=== PATIENT | female | born 1955 | race African-American/Black ===

== ENCOUNTER 2017-02-03 15:38 | Inpatient (IN) ==
[2017-02-03] MEDS ORDERED: SODIUM CHLORIDE 0.9% 1,000 ML IV STA (16:14)
--- NOTE | 2017-02-03 16:17 | Emergency Department Note ---
Arrival - Arrival Chief Complaint: Non-Specific Stated Complaint: weakness, hearing loss, headache, cough, stomach ED Nursing Triage Note: pt to triage with c/o having multi c/o's, pt c/o having peg tube site pain. weakness. headaches. onset 3 days echo vasc tech. Mode of Arrival: Wheelchair Limitations: Language Barrier Source: Family Time Seen by Provider: 02/03/17 16:01 - History of Present Illness HPI Narrative: The patient has a previous history of brain aneurysm 2 and cannot speak so history is limited. The family complains of generalized weakness, right sided headache and cough for the past 2-3 days. They say that she is usually able to get up and walk around with her walker, however, she has been unable to today. The cough is nonproductive and occurs mostly at night. They think she may have run some low-grade fever a few days ago, but none at present. They also say that the patient has been complaining of some abdominal pain around her PEG tube site although she does not appear to be having any pain there at this time. Allergies/Adverse Reactions: Allergies Allergy/AdvReac Type Severity Reaction Status Date / Time codeine Allergy HIVES Verified 02/03/17 15:47 Home Medications: Home Medications Medication Instructions Recorded Confirmed Type No Known Home Medications [No 02/03/17 02/03/17 History Known Home Medications] Review of System - Review of System ROS unobtainable: other (Aphasia) - Review of System Constitutional: Present: fever (Questionable) Respiratory: Present: cough Gastrointestinal: Present: abdominal pain (Questionable). Absent: nausea, vomiting Genitourinary female: Absent: dysuria Medical,Surgical,& Family Hx - Medical History Cardio: History of: Cardiovascular Problems (Hypotension) Neurology: History of: Cerebrovascular Accident, Neurological Problems ( Cerebral aneurysm) Respiratory: History of: Pneumonia - Surgical History HEENT Surgeries: Surgical HX of: Eye Surgery Additional Surgical History: Tracheostomy, PEG tube - Family History Family History: noncontributory - Social History Smoking Status: Never smoker Frequency of Alcohol Use: None Type of Drug Use: None Exam Physical Examination: GENERAL: Alert. No acute distress. HEENT: Normocephalic and atraumatic. Mild right parietal and occipital scalp tenderness. No temporal artery tenderness. The right pupil is larger than the left. The left pupil is small and minimally reactive. There is a left medial gaze deviation. All of this is chronic according to the family. There is no nasal drainage. The patient is unable to cooperate with oropharyngeal exam. NECK: Normal inspection. Supple. No lymphadenopathy or meningismus. LUNGS: No respiratory distress. Clear to auscultation bilaterally, no wheezes, rales or rhonchi. HEART: Regular rate and rhythm. ABDOMEN: Soft, nontender and nondistended with normoactive bowel sounds. PEG tube in place. No erythema, tenderness or drainage around the tube site. BACK: Normal inspection. SKIN: Color normal. Warm and dry. EXTREMITIES: Nontender. Normal range of motion. No pedal edema. NEUROLOGICAL/PSYCHIATRIC: Cannot assess orientation due to aphasia. 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 No sensory deficit. No motor deficit. Vital Signs: Vital Signs Temperature 98.0 F 02/03/17 15:53 Pulse Rate 80 02/03/17 15:53 Respiratory Rate 17 02/03/17 15:53 Blood Pressure 97/63 02/03/17 15:53 O2 Sat by Pulse Oximetry 97 02/03/17 15:43 Course - Reevaluation(s) Reevaluation #1: The patient's CT results shows a left sided extracranial mass. We have no prior CT to compare this to but I suspect it is chronic. The patient is unable to tell me and the family has left the room at this point. I am waiting on them to return. Time: 17:37 Reevaluation #2: I discussed the CT findings with the family. They did not know of any cancer or mass. I have no old CT to compare to so I was going to transfer her to [facility], where she is regularly seen. They did not have beds available but I was able to get the doctor to look up an old MRI report from 2016. This showed what sounds like the same mass that is reported on today's CT scan. So, this appears to be a chronic finding that is being followed and I doubt it has anything to do with her acute symptoms. I have discussed the patient with the hospitalist service who will see her and admit. Time: 18:35 Results - Labs CBC & BMP: 02/03/17 16:27 02/03/17 16:27 Lab Results: I have reviewed the patients labs Labs: Laboratory Tests 02/03/17 02/03/17 16:27 16:27 Total Bilirubin < 0.39 AST 23 ALT 23 Alkaline Phosphatase 102 Amylase 67 Lipase 190.0 Ur Specific Jackson 1.005 Urine Leukocytes Negative Urine WBC <1 - Impressions KUB shows prominent constipation. Chest x-ray shows left basilar atelectasis. CT of the head shows: 1. Partially included on this exam, is an area of soft tissue mass effect suspicious for neoplasm involving the general area of the left cement tile maker space. 2. Extensive postsurgical change involving the left occipital and parietal regions, within encephalomalacia and low density areas involving the left cerebellar hemisphere. This will need careful correlation with previous outside studies and/or history of the type of surgery actually performed. 3. Opacification of the mastoid air cells bilaterally. Erosive areas involving the bone of the left temporal and mastoid region, I am uncertain whether this is the result of the previous surgery, or the abnormal mass effect present on today's study which is extracranial. Disposition Clinical Impression: Generalized weakness, Cough, Constipation Case discussed with: patient, patient's family Disposition: Still a Patient Time of Disposition: 18:37
[2017-02-03 16:33] LABS: Basophils % 0.8 % (0.0-0.8); Eosinophils # 0.2 10*3/uL (0.0-0.87); Eosinophils % 5.2 % (0.00-10.9); Hematocrit 35.5 VOL% (35.7-47.0); Hemoglobin 12.3 GM/DL (12.0-16.0); Lymphocytes % 50.8 % (21.3-54.2); Mean Corpuscular HGB Conc 34.6 GM/DL (32-36); Mean Corpuscular Hemoglobin 32 PG (27-34); Mean Corpuscular Volume 91.5 FL (87-102); Mean Platelet Volume 11.6 FL (9.6-12.0); Monocytes # 0.5 10*3/uL (0.11-0.8); Monocytes % 12.4 % (1.7-12.7); Neutrophils # 1.2 10*3/uL (1.4-7.4); Neutrophils % 30.8 % (38.7-73.9); Platelet Count 209 T/CUMM (130-400); Red Blood Count 3.88 MC/CUMM (3.8-5.5); White Blood Count 3.9 T/CUMM (4-12)
[2017-02-03 16:59] LABS: Alanine Aminotransferase 23 U/L (13-56); Albumin 3.6 G/DL (3.4-5.0); Alkaline Phosphatase 102 U/L (45-117); Amylase 67 U/L (25-115); Aspartate Amino Transferase 23 U/L (0-37); Bilirubin,Total < 0.39 MG/DL (0.2-1.0); Blood Urea Nitrogen 20 MG/DL (7-18); Calcium 9.3 MG/DL (8.5-10.1); Glucose 82 MG/DL (74-106); Osmolality,Calculated 278.5 MOS/KG (273-304); Potassium 4.4 MMOL/L (3.5-5.1); Sodium 139 MMOL/L (136-145); Total Protein 7.7 G/DL (6.4-8.3)
--- NOTE | 2017-02-03 17:05 | CT Report ---
CT of the head without contrast. Indication: Headache. History of aneurysm. No prior studies. There has been a previous left occipital parietal craniotomy, and there is a large absent section of bone in this location. The left mastoid has been partially resected. The posterior fossa has an abnormal appearance. The fourth ventricle is dilated. There is encephalomalacia of the left cerebellar hemisphere. The third and lateral ventricles are normal in size. There is a small lacunar infarct in the left parietal white matter. There is no mass effect or midline shift. There is no evidence of acute hemorrhage. Within the general area of the left production team member space, incompletely included on this exam, there is soft tissue mass effect measuring at least 2.8 x 5.6 cm, with possible calcification present. This exerts mass effect on the left mandible, and extends toward the left pterygoids, below the left aspect of the skull base. There is lucency and erosion noted involving the left temporal bone, I am uncertain how much of this is related to the mass effect and how much is related to the previous surgery. The remaining left mastoid air cells are opacified, as are most of the right mastoid air cells. There is mild mucosal thickening within the paranasal sinuses. Impression: 1. Partially included on this exam, is an area of soft tissue mass effect suspicious for neoplasm involving the general area of the left production team member space. 2. Extensive postsurgical change involving the left occipital and parietal regions, within encephalomalacia and low density areas involving the left cerebellar hemisphere. This will need careful correlation with previous outside studies and/or history of the type of surgery actually performed. 3. Opacification of the mastoid air cells bilaterally. Erosive areas involving the bone of the left temporal and mastoid region, I am uncertain whether this is the result of the previous surgery, or the abnormal mass effect present on today's study which is extracranial. The CT exam was performed using one or more of the following dose reduction techniques: Automated exposure control, adjustment of the mA and/or kV according to patient size, or use of iterative reconstruction technique. PROCEDURE INTERPRETED AT [facility] DEPARTMENT OF RADIOLOGY Final Report Signed by: Dr. Sarah Olvera
--- NOTE | 2017-02-03 17:14 | XRay Report ---
Portable chest. Indication: Cough and weakness. No prior studies. The heart is normal in size. There is mild hypoaeration at the left lung base. There is calcific plaque present within the aortic knob. The right lung is clear. No pneumothorax or pleural effusion. Impression: Left basilar atelectasis. PROCEDURE INTERPRETED AT [facility] DEPARTMENT OF RADIOLOGY Final Report Signed by: Dr. Sarah Olvera
--- NOTE | 2017-02-03 17:15 | XRay Report ---
KUB. Indication: Generalized abdominal pain. A gastrostomy tube projects with its distal tip of the left upper quadrant. An IVC filter is visible. There is fecal material filling the colon. There is a 2 cm calcification in the left pelvis, likely a uterine fibroid. Mild degenerative changes of the spinal column. Impression: Prominent constipation. PROCEDURE INTERPRETED AT [facility] DEPARTMENT OF RADIOLOGY Final Report Signed by: Dr. Sarah Olvera
[2017-02-03 17:28] LABS: Eosinophils 8 % (0-10); Lymphocytes 57 % (20-55); Segmented Neutrophils 28 % (50-85); Total Cells Counted 100
[2017-02-03 17:29] LABS: Anisocytosis Slight; Macrocytosis Slight; Platelet Estimate Normal
[2017-02-03 18:00] LABS: Apearance,Urine CLEAR (Clear); Bilirubin,Urine Negative (Negative); Blood, Urine Negative (Negative); Glucose,Urine (UA) Negative (Negative); Ketones,Urine Negative (Negative); Nitrite,Urine Negative (Negative); Protein,Urine Negative; Squamous Epithelial Cell,Urine Occasional /HPF (0-10); Urine Color Straw (Yellow); Urine Specific Gravity 1.005 (1.001-1.035); Urine Urobilinogen < 2.0 EU/DL (0.2-1.0); WBC,Urine <1 /HPF (0-6)
[2017-02-03] MEDS ORDERED: ONDANSETRON 4 MG/2 ML VIAL IV PRN (18:43)
--- NOTE | 2017-02-03 18:50 | Hospitalist History & Physical ---
Assessment and Plan (1) Constipation Status: Acute Assessment and plan: KUB shows prominent constipation. We will start milk of magnesia 30 cc per tube twice daily. Current Visit: Yes (2) Cough Status: Acute Assessment and plan: The patient's cough is chronic in nature. Chest x-ray revealed left basilic atelectasis. We will start empiric antibiotic coverage recheck chest x-ray in a.m. Current Visit: Yes (3) Generalized weakness Status: Acute Assessment and plan: The family reports the acute onset of generalized weakness. Patient does have a degree of debility however, the family reports that the patient has a decline in status. CT was significant for the presence of a left-sided extracranial mass. During the ED encounter, Dr. Obregon contacted [facility] regarding the patient's status. Per Dr. Obregon, the presence of the left-sided intracranial mass is chronic in nature. We will consult neurology to evaluate and offer recommendations for care. PT and OT consultation. Current Visit: Yes History of Present Illness Chief complaint: Generalized weakness History of present illness: This is a chronically ill 5 61-year-old female that presented to the ED at [facility] this afternoon for the evaluation of generalized weakness. The patient has a long and extensive medical history significant for multiple cerebrovascular accidents, cerebral aneurysm, dysphasia , aphasia, pneumonia, and hypotension. The patient has a surgical history significant for tracheostomy placement, percutaneous gastrostomy tube placement , and eye surgery. The family reported the onset of symptoms 2-3 days prior to presentation. They reported that the patient started to experience and headache and cough and gradually became weaker. They report that the patient generally is able to ambulate slowly with a front rolling walker however the patient was unable to ambulate today. In addition, they report that the patient has been experiencing abdominal pain around the percutaneous gastrostomy tube site. They became alarmed when the patient was unable to ambulate prompting them to present to the ED for further evaluation. The patient was assessed at the time of ED presentation. Labs were obtained which were significant for white blood cell count 3.9, hematocrit 35.5, BUN 20, and globulin 4.1. Urinalysis was remarkable for urobilinogen greater than 2.0. KUB significant for prominent constipation. Chest x-ray was significant for left basilic atelectasis. CT head without contrast was significant for the presence of left-sided extracranial mass. After brief discussion with both Dr. Caceres and Dr. Magaña, the patient will be admitted to the hospitalist service for continuation of care. Due to the severity of the patient's comorbidities and presenting symptoms, a neurology consultation has been requested. No home medications have been reported; therefore no reconciliation has been performed. CODE STATUS has been discussed ; patient is a FULL CODE. Home Medications Medication Instructions Recorded Confirmed Type No Known Home Medications [No 02/03/17 02/03/17 History Known Home Medications] Allergies Allergy/AdvReac Type Severity Reaction Status Date / Time codeine Allergy HIVES Verified 02/03/17 15:47 Medical,Surgical,& Family Hx - Medical History Cardio: History of: Cardiovascular Problems (Hypotension) Neurology: History of: Cerebrovascular Accident, Neurological Problems ( Cerebral aneurysm) Respiratory: History of: Pneumonia - Surgical History HEENT Surgeries: Surgical HX of: Eye Surgery - Social History Smoking Status: Never smoker Have you smoked in the last 12 months: No Frequency of Alcohol Use: None Type of Drug Use: None Marital Status: Single Lives With:: Children Functional capacity: uses cane/walker 12 point system: reviewed and no additional remarkable complaints except as stated Exam - Constitutional Vitals: Period Temp Pulse Resp BP Sys/Meza Pulse Ox Last 24 Hr 98.0 F-98.0 F 80-80 17-17 97-97/63-63 97 General appearance: normal weight, no acute distress - Head Head exam: Present: normal inspection. Absent: normocephalic, atraumatic - Eye Pupils: Present: unequal (Left medial gaze noted.). Absent: ARSLAN (Left pupil sluggish; right pupil equal round and reactive) - ENT ENT exam: Present: normal exam, normal external ear exam, normal oropharynx - Neck Neck exam: Present: normal inspection. Absent: lymphadenopathy, meningismus, tenderness, thyromegaly - Respiratory Respiratory exam: Present: clear to auscultation bilaterally. Absent: rales, rhonchi, stridor, wheezes - Cardiovascular Cardiovascular exam: Present: regular rate and rhythm. Absent: carotid bruit, diastolic murmur, gallop, JVD, rubs, systolic murmur - GI/Abdominal GI/Abdominal exam: Present: normal bowel sounds, soft, other (PEG tube noted) - Extremities Exam Extremities exam: Present: normal inspection, other (Contractures noted to right upper extremity) - Back Exam Back exam: Present: normal inspection - Neurological Exam Neurological exam: Present: alert, other - Psychiatric Psychiatric exam: Present: normal affect, normal mood - Skin Skin exam: Present: normal color, warm, dry Results - Labs CBC & BMP: 02/03/17 16:27 02/03/17 16:27 Lab Results: I have reviewed the past 24 hour labs
[2017-02-03] MEDS: ENOXAPARIN 40 MG/0.4 ML SYRINGE SUBCUT SCH (22:20)
[2017-02-03] MEDS: MAGNESIUM HYDROXIDE SUSP 30 ML UDCUP PER TUBE SCH (22:20)
[2017-02-03] MEDS: SODIUM CHLORIDE 0.9% 1,000 ML IV SCH (22:20)
[2017-02-03] MEDS: LEVOFLOXACIN INJ 500 MG in PREMIX 1 EACH IV SCH (22:20)
[2017-02-04 07:37] LABS: Basophils % 0.5 % (0.0-0.8); Eosinophils # 0.2 10*3/uL (0.0-0.87); Eosinophils % 4.8 % (0.00-10.9); Hematocrit 35.7 VOL% (35.7-47.0); Hemoglobin 12.4 GM/DL (12.0-16.0); Lymphocytes # 1.9 10*3/uL (1.4-4.0); Lymphocytes % 46.3 % (21.3-54.2); Mean Corpuscular HGB Conc 34.7 GM/DL (32-36); Mean Corpuscular Hemoglobin 32 PG (27-34); Mean Corpuscular Volume 92.2 FL (87-102); Mean Platelet Volume 11.9 FL (9.6-12.0); Monocytes # 0.4 10*3/uL (0.11-0.8); Monocytes % 10.5 % (1.7-12.7); Neutrophils # 1.5 10*3/uL (1.4-7.4); Neutrophils % 37.9 % (38.7-73.9); Platelet Count 208 T/CUMM (130-400); Red Blood Count 3.87 MC/CUMM (3.8-5.5); Red Cell Distribution Width 12.8 % (9.3-17.3)
[2017-02-04 08:18] LABS: Albumin 3.2 G/DL (3.4-5.0); Bilirubin,Total 0.8 MG/DL (0.2-1.0); Calcium 8.9 MG/DL (8.5-10.1); Magnesium 2.2 MG/DL (1.8-2.4); Potassium 4.6 MMOL/L (3.5-5.1); Thyroid Stimulating Hormone 5.06 uIU/ml (0.358-3.74); Total Protein 6.8 G/DL (6.4-8.3)
[2017-02-04 08:25] LABS: Eosinophils 6 % (0-10); Hypochromasia 1+; Lymphocytes 48 % (20-55); Microcytosis Slight; Platelet Estimate Normal; Segmented Neutrophils 34 % (50-85); Total Cells Counted 100
[2017-02-04] MEDS: SODIUM CHLORIDE 0.9% 1,000 ML IV SCH (09:57)
[2017-02-04] MEDS: MAGNESIUM HYDROXIDE SUSP 30 ML UDCUP PER TUBE SCH ×2 (09:58→22:08)
[2017-02-04] MEDS: LEVOTHYROXINE 100 MCG VIAL IV SCH (09:59)
--- NOTE | 2017-02-04 10:09 | Hospitalist Progress Note ---
Assessment and Plan (1) Constipation Status: Acute Assessment and plan: KUB shows prominent constipation. We will start milk of magnesia 30 cc per tube twice daily. 02/04-no bowel movement noted since admission. KUB at the time of admission was remarkable for the presence of constipation. We will continue milk of magnesia per tube twice daily. Current Visit: Yes (2) Cough Status: Acute Assessment and plan: The patient's cough is chronic in nature. Chest x-ray revealed left basilic atelectasis. We will start empiric antibiotic coverage recheck chest x-ray in a.m. Current Visit: Yes (3) Generalized weakness Status: Acute Assessment and plan: The family reports the acute onset of generalized weakness. Patient does have a degree of debility however, the family reports that the patient has a decline in status. CT was significant for the presence of a left-sided extracranial mass. During the ED encounter, Dr. Obregon contacted [facility] regarding the patient's status. Per Dr. Obregon, the presence of the left-sided intracranial mass is chronic in nature. We will consult neurology to evaluate and offer recommendations for care. PT and OT consultation. 02/04-physical therapy and Occupational Therapy consultations have been requested. Awaiting neurology consultation for further evaluation and recommendations. Current Visit: Yes (4) Hypothyroidism Status: Acute Assessment and plan: Free T4 noted at 1.02 and TSH at 5.060. There are no previous medical records noted for comparison. We will start low-dose levothyroxine 50 mcg intravenously. Current Visit: Yes Qualifiers: Hypothyroidism type: other Qualified Code(s): E03.8 - Other specified hypothyroidism (5) PEG (percutaneous endoscopic gastrostomy) status Status: Acute Assessment and plan: We will consult dietary to initiate enteral feedings. Current Visit: Yes Hospitalist: Subjective Interval history: Patient seen and examined; chart reviewed. No significant overnight events reported per staff. Awaiting neurology consultation for evaluation and further recommendations. Exam - Constitutional Vitals: Period Temp Pulse Resp BP Sys/Meza Pulse Ox Last 24 Hr 96.8 F-98.0 F 72-80 17-20 97-113/57-71 96-98 General appearance: normal weight, no acute distress - Head Head exam: Present: normal inspection, normocephalic, atraumatic - Eye Pupils: Present: unequal (Left medial gaze noted). Absent: ARSLAN (Left pupil sluggish; right pupil equal round and reactive) - ENT ENT exam: Present: normal exam, normal external ear exam, normal oropharynx - Neck Neck exam: Present: normal inspection. Absent: lymphadenopathy, meningismus, tenderness, thyromegaly - Respiratory Respiratory exam: Present: clear to auscultation bilaterally. Absent: rales, rhonchi, stridor, wheezes - Cardiovascular Cardiovascular exam: Present: regular rate and rhythm - GI/Abdominal GI/Abdominal exam: Present: normal bowel sounds, soft, other (PEG tube noted) - Extremities Exam Extremities exam: Present: normal inspection, other (Contractures noted to right upper extreme) - Back Exam Back exam: Present: normal inspection - Neurological Exam Neurological exam: Present: alert, other (Nonverbal) - Psychiatric Psychiatric exam: Present: normal affect, normal mood - Skin Skin exam: Present: normal color, warm, dry Results - Labs CBC & BMP: 02/04/17 07:17 02/04/17 07:17 Lab Results: I have reviewed the past 24 hour labs Specialty Discharge - Follow Up or Referrals
--- NOTE | 2017-02-04 14:49 | Neurology Consult Note ---
History of Present Illness History of present illness: 61-year-old -[place] lady with past medical history significant for multiple CVAs, cerebral aneurysm, dysphasia, aphasia, pneumonia, hypertension that presented to the ED at [facility] this afternoon for the evaluation of generalized weakness. She has a history of PEG tube placement along with tracheostomy and eye surgery. Patient admitted with generalized weakness, headache and cough family reported that generally patient is able ambulate slowly with a rolling walker however she has not been able to do that for last couple of days. She also has some abdominal pain. She was brought to the hospital and underwent CT scan of the brain which reveals possible left cerebellar hemisphere mass with dilatation of fourth ventricle. Previous sentinel system history is not available. No history of seizures. Home Medications Medication Instructions Recorded Confirmed Type No Known Home Medications [No 02/03/17 02/03/17 History Known Home Medications] Allergies Allergy/AdvReac Type Severity Reaction Status Date / Time codeine Allergy HIVES Verified 02/03/17 15:47 12 point system: reviewed and no additional remarkable complaints except as stated Medical,Surgical,& Family Hx - Medical History Cardio: History of: Cardiovascular Problems (Hypotension) Neurology: History of: Brain Aneurysm, Cerebrovascular Accident, Neurological Problems (Cerebral aneurysm) Respiratory: History of: Pneumonia - Surgical History Neurologic Surgeries: Surgical HX of: Brain Aneurysm HEENT Surgeries: Surgical HX of: Eye Surgery - Family History Family History: Reports;: Family Diabetes, Family Heart Disease - Social History Smoking Status: Never smoker Frequency of Alcohol Use: None Type of Drug Use: None Exam - Constitutional Vitals: Period Temp Pulse Resp BP Sys/Meza Pulse Ox Last 24 Hr 96.8 F-98.0 F 68-80 14-20 94-113/57-71 95-98 Exam: GENERAL: Patient is in no acute distress. NECK: Neck is supple. There is no JVD. No carotid bruits present. No thyroid masses. CVS: First and second heart sounds are normal. There is no S3 present. Regular rate and rhythm. RESPIRATORY: Lungs are clear to auscultation without any rales or rhonchi. ABDOMEN: Soft and non-tender. Bowel sounds are present. There is no hepatosplenomegaly. EXT: There is no palpable edema. Peripheral pulses are present. Skin: No rashes Central Nervous system: General: Alert, awake Speech: Non-Fluent Comprehension: Fair Facial expressions: Normal Cranial Nerves: Pupils are equally reactive to light. Doll's head I movements are positive. Extraocular movements are intact. She was swelling of the left facial area Motor: Bulk and Tone is normal. Strength moving all 4 extremities on command Sensory: Unreliable Reflexes: 2+ and symmetrical Cerebellar function: Not tested Toes: Equivocal Gait: Not tested Results - Labs CBC & BMP: 02/04/17 07:17 02/04/17 07:17 Assessment and Plan (1) Cerebral mass Status: Acute Assessment and plan: Etiology is not clear. Differential diagnosis included neoplastic process, questionable old postsurgical changes, stroke etc. We will go ahead and do MRI of the brain with and without contrast Thank you for the consult Current Visit: Yes (2) Generalized weakness Status: Acute Assessment and plan: Continue present management Current Visit: Yes Specialty Discharge - Follow Up or Referrals
--- NOTE | 2017-02-04 17:23 | Magnetic Resonance Report ---
MRI of the brain with and without contrast. Indication: Mass of the head and neck. Sagittal T1, axial T2, axial diffusion, axial T2, axial T1, axial gradient echo, axial T1 plus contrast, coronal T1 plus contrast, sagittal T1 plus contrast, axial ADC. 11 cc Dotarem. No previous study there is a large abnormal soft tissue mass present in the left extracranial head and neck, appearing to most likely be arising in the psychiatric registered nurse space. It is relatively hyperintense on T2, solid, and relatively homogeneous. It contains large vascular structures. Following contrast administration, it enhances diffusely and uniformly. It appears to lie deep to the parotid gland, and exerts mass effect on the left parotid gland, and left oropharynx. It extends inferiorly into the upper neck, only seen entirely on the coronal postcontrast images. It measures grossly 5.5 x 3.0 x 6.2 cm. There has been a previous left occipital parietal craniotomy. There is encephalomalacia of both cerebellar hemispheres, left greater than right. There is ex vacuo dilatation of the fourth ventricle. Along the meninges on the left at the craniotomy defect, there is thickening and enhancement. There is a 12.5 cm nodular area of enhancement, extra-axial, extending from the meninges and tentorium. There is no midline shift. There is no acute hemorrhage. There are no cerebral areas of abnormal enhancement. The venous sinuses are patent, the left transverse sinus is surgically altered. There is no acute ischemia. There are mild changes of chronic microvascular ischemia within the periventricular white matter. There is opacification of both mastoid air cells. There is mild ethmoid mucosal thickening. Impression: 1. There is evidence of a previous left parieto-occipital craniotomy. Deep to the craniotomy defect, there is meningeal enhancement, and a nodular area of meningeal enhancement which could represent meningioma, metastatic disease, or recurrent tumor, if a primary tumor was previously removed from this area. Clinical correlation recommended. 2. There is a large head and neck mass seen in the left psychiatric registered nurse space and extending into the neck. This needs further evaluation with CT of the soft tissues of the neck, to better delineate its relationship with the carotid artery and jugular vein. It appears to be somewhat vascular, and enhances avidly. PROCEDURE INTERPRETED AT [facility] DEPARTMENT OF RADIOLOGY Final Report Signed by: Dr. Sarah Olvera
[2017-02-04] MEDS: ENOXAPARIN 40 MG/0.4 ML SYRINGE SUBCUT SCH (19:14)
[2017-02-04] MEDS: LEVOFLOXACIN INJ 500 MG in PREMIX 1 EACH IV SCH (19:14)
[2017-02-04] MEDS: ATORVASTATIN 20 MG TABLET PEG SCH (22:08)
[2017-02-05] MEDS: SODIUM CHLORIDE 0.9% 1,000 ML IV SCH ×2 (01:55→13:20)
[2017-02-05] MEDS: LEVOTHYROXINE 100 MCG VIAL IV SCH (06:36)
[2017-02-05 08:16] LABS: Calcium 8.6 MG/DL (8.5-10.1); Magnesium 2.3 MG/DL (1.8-2.4); Osmolality,Calculated 284.1 MOS/KG (273-304); Phosphorous 2.3 MG/DL (2.5-4.9); Potassium 4.1 MMOL/L (3.5-5.1); Prealbumin 19.4 MG/DL (20-40)
[2017-02-05] MEDS: MAGNESIUM HYDROXIDE SUSP 30 ML UDCUP PER TUBE SCH ×2 (08:45→20:10)
--- NOTE | 2017-02-05 08:54 | Hospitalist Progress Note ---
<Alejandra Darden - Last Filed: 02/05/17 08:52> Assessment and Plan (1) Constipation Status: Acute Assessment and plan: KUB shows prominent constipation. We will start milk of magnesia 30 cc per tube twice daily. 02/04-no bowel movement noted since admission. KUB at the time of admission was remarkable for the presence of constipation. We will continue milk of magnesia per tube twice daily. 02/05-no bowel movement noted since admission. We will continue milk of magnesia per tube twice daily however, we will give a one-time dose of lactulose today. Current Visit: Yes (2) Cough Status: Acute Assessment and plan: The patient's cough is chronic in nature. Chest x-ray revealed left basilic atelectasis. We will start empiric antibiotic coverage recheck chest x-ray in a.m. Current Visit: Yes (3) Generalized weakness Status: Acute Assessment and plan: The family reports the acute onset of generalized weakness. Patient does have a degree of debility however, the family reports that the patient has a decline in status. CT was significant for the presence of a left-sided extracranial mass. During the ED encounter, Dr. Obregon contacted [facility] regarding the patient's status. Per Dr. Obregon, the presence of the left-sided intracranial mass is chronic in nature. We will consult neurology to evaluate and offer recommendations for care. PT and OT consultation. 02/04-physical therapy and Occupational Therapy consultations have been requested. Awaiting neurology consultation for further evaluation and recommendations. 02/05-physical and Occupational Therapy consultations have been requested. The patient was seen by neurology on yesterday. MRI was significant for meningeal enhancement and a nodular area of meningeal enhancement which was possibly retail account representative of a meningioma, metastatic disease, or recurrent tumor. In addition, a large head and neck mass was seen in the left bead builder space and extending into the neck. We will await neurology evaluation today for further direction. Current Visit: Yes (4) Hypothyroidism Status: Acute Assessment and plan: Free T4 noted at 1.02 and TSH at 5.060. There are no previous medical records noted for comparison. We will start low-dose levothyroxine 50 mcg intravenously. Current Visit: Yes Qualifiers: Hypothyroidism type: other Qualified Code(s): E03.8 - Other specified hypothyroidism (5) PEG (percutaneous endoscopic gastrostomy) status Status: Acute Assessment and plan: We will consult dietary to initiate enteral feedings. Current Visit: Yes Hospitalist: Subjective Interval history: Patient seen and examined; chart reviewed. No significant overnight events reported per staff. MRI and neurology consultation yesterday. We appreciate the input. Exam - Constitutional Vitals: Period Temp Pulse Resp BP Sys/Meza Pulse Ox Last 24 Hr 97.2 F-98.2 F 68-100 14-20 85-97/55-59 95-98 General appearance: normal weight, no acute distress - Head Head exam: Present: normal inspection, normocephalic, atraumatic - Eye Eye exam: Present: EOMI. Absent: conjunctival injection Pupils: Present: unequal (Left eye medial gaze noted). Absent: ARSLAN (Left pupil sluggish; right pupil equal round and reactive.) - ENT ENT exam: Present: normal exam, normal external ear exam. Absent: normal oropharynx - Neck Neck exam: Present: normal inspection. Absent: lymphadenopathy, meningismus, thyromegaly - Respiratory Respiratory exam: Present: clear to auscultation bilaterally. Absent: rales, rhonchi, stridor, wheezes - Cardiovascular Cardiovascular exam: Present: regular rate and rhythm. Absent: carotid bruit, diastolic murmur, gallop, JVD, rubs, systolic murmur - GI/Abdominal GI/Abdominal exam: Present: normal bowel sounds (Patient treatment), soft, other - Extremities Exam Extremities exam: Present: normal capillary refill, other. Absent: normal inspection (Contractures noted to right upper extremity), full ROM - Back Exam Back exam: Present: normal inspection - Neurological Exam Neurological exam: Present: alert, other - Psychiatric Psychiatric exam: Present: normal affect (Nonverbal), normal mood - Skin Skin exam: Present: normal color, warm, dry Results - Labs CBC & BMP: 02/04/17 07:17 02/05/17 06:51 Lab Results: I have reviewed the past 24 hour labs Specialty Discharge - Follow Up or Referrals <Robert West - Last Filed: 02/05/17 11:19> Hospitalist: Subjective Interval history: Patient's major problem continues to be constipation which has to date been unresponsive to laxatives. We will give her a soapsuds enema today. Exam - Constitutional Vitals: Period Temp Pulse Resp BP Sys/Meza Pulse Ox Last 24 Hr 97.2 F-98.2 F 75-100 14-20 85-105/55-65 95-98 Results - Labs CBC & BMP: 02/04/17 07:17 02/05/17 06:51
[2017-02-05] MEDS ORDERED: LACTULOSE 20 GM/30 ML UDCUP PER TUBE ONE (14:37)
--- NOTE | 2017-02-05 15:20 | Neurology Progress Note ---
Neurology - PN : Subjective Interval history: Ms. cao seems to be doing better. No new problems reported. MRI of the brain report noted. Patient probably will need evaluation back at [facility]. Exam (Progress Note) - Constitutional Vitals: Period Temp Pulse Resp BP Sys/Meza Pulse Ox Last 24 Hr 97.2 F-98.2 F 75-100 14-20 85-113/55-73 95-98 Exam: GENERAL: Patient is in no acute distress. NECK: Neck is supple. There is no JVD. No carotid bruits present. No thyroid masses. CVS: First and second heart sounds are normal. There is no S3 present. Regular rate and rhythm. RESPIRATORY: Lungs are clear to auscultation without any rales or rhonchi. ABDOMEN: Soft and non-tender. Bowel sounds are present. There is no hepatosplenomegaly. EXT: There is no palpable edema. Peripheral pulses are present. Skin: No rashes Central Nervous system: General: Alert, awake Speech: Non-Fluent Comprehension: Fair Facial expressions: Normal Cranial Nerves: Pupils are equally reactive to light. Doll's head I movements are positive. Extraocular movements are intact. She was swelling of the left facial area Motor: Bulk and Tone is normal. Strength moving all 4 extremities on command Sensory: Unreliable Reflexes: 2+ and symmetrical Cerebellar function: Not tested Toes: Equivocal Gait: Not tested Results - Labs CBC & BMP: 02/04/17 07:17 02/05/17 06:51 Assessment and Plan (1) Cerebral mass Status: Acute Assessment and plan: We will need further evaluation at [facility] neurosurgical department. No further intervention can be done here locally Continue PT and OT Current Visit: Yes (2) Generalized weakness Status: Acute Assessment and plan: Continue present management Current Visit: Yes Specialty Discharge - Follow Up or Referrals
[2017-02-05] MEDS: LEVOFLOXACIN INJ 500 MG in PREMIX 1 EACH IV SCH (18:44)
[2017-02-05] MEDS: ENOXAPARIN 40 MG/0.4 ML SYRINGE SUBCUT SCH (18:45)
[2017-02-05] MEDS: ATORVASTATIN 20 MG TABLET PEG SCH (20:09)
[2017-02-06] MEDS: SODIUM CHLORIDE 0.9% 1,000 ML IV SCH (01:47)
[2017-02-06] MEDS: LEVOTHYROXINE 100 MCG VIAL IV SCH (06:19)
--- NOTE | 2017-02-06 08:33 | Hospitalist Progress Note ---
Assessment and Plan (1) Constipation Status: Acute Assessment and plan: KUB shows prominent constipation. We will start milk of magnesia 30 cc per tube twice daily. 02/04-no bowel movement noted since admission. KUB at the time of admission was remarkable for the presence of constipation. We will continue milk of magnesia per tube twice daily. 02/05-no bowel movement noted since admission. We will continue milk of magnesia per tube twice daily however, we will give a one-time dose of lactulose today. 02/06-bowel movement was yesterday. We will continue current bowel regimen as previously ordered. Current Visit: Yes (2) Cough Status: Acute Assessment and plan: The patient's cough is chronic in nature. Chest x-ray revealed left basilic atelectasis. We will start empiric antibiotic coverage recheck chest x-ray in a.m. Current Visit: Yes (3) Generalized weakness Status: Acute Assessment and plan: The family reports the acute onset of generalized weakness. Patient does have a degree of debility however, the family reports that the patient has a decline in status. CT was significant for the presence of a left-sided extracranial mass. During the ED encounter, Dr. Obregon contacted [facility] regarding the patient's status. Per Dr. Obregon, the presence of the left-sided intracranial mass is chronic in nature. We will consult neurology to evaluate and offer recommendations for care. PT and OT consultation. 02/04-physical therapy and Occupational Therapy consultations have been requested. Awaiting neurology consultation for further evaluation and recommendations. 02/05-physical and Occupational Therapy consultations have been requested. The patient was seen by neurology on yesterday. MRI was significant for meningeal enhancement and a nodular area of meningeal enhancement which was possibly associate financial representative of a meningioma, metastatic disease, or recurrent tumor. In addition, a large head and neck mass was seen in the left medical photographer space and extending into the neck. We will await neurology evaluation today for further direction. 02/06-we will continue physical and Occupational Therapy consultations as previously ordered. Seen per neurology on yesterday. We agree with neurologist recommendation for further evaluation at [facility] neurosurgical department. Case management has been consulted for discharge planning Current Visit: Yes (4) Hypothyroidism Status: Acute Assessment and plan: Free T4 noted at 1.02 and TSH at 5.060. There are no previous medical records noted for comparison. We will start low-dose levothyroxine 50 mcg intravenously. Current Visit: Yes Qualifiers: Hypothyroidism type: other Qualified Code(s): E03.8 - Other specified hypothyroidism (5) PEG (percutaneous endoscopic gastrostomy) status Status: Acute Assessment and plan: We will consult dietary to initiate enteral feedings. Current Visit: Yes Hospitalist: Subjective Interval history: Patient seen and examined; chart reviewed. No significant overnight events reported per staff. Case management consultation has been requested discharge planning for placement. Exam - Constitutional Vitals: Period Temp Pulse Resp BP Sys/Meza Pulse Ox Last 24 Hr 97.7 F-98.8 F 75-94 14-20 88-114/55-73 93-97 General appearance: normal weight, no acute distress - Head Head exam: Present: normal inspection, normocephalic, atraumatic - Eye Eye exam: Present: EOMI Pupils: Present: unequal (Left medial gaze note). Absent: ARSLAN (Left pupil sluggish, right pupil equal round and reactive.) - ENT ENT exam: Present: normal exam, normal external ear exam, normal oropharynx - Neck Neck exam: Present: normal inspection. Absent: lymphadenopathy, meningismus, tenderness, thyromegaly - Respiratory Respiratory exam: Present: clear to auscultation bilaterally. Absent: rales, rhonchi, stridor, wheezes - Cardiovascular Cardiovascular exam: Present: regular rate and rhythm, tachycardia. Absent: carotid bruit, diastolic murmur, gallop, JVD, rubs, systolic murmur - GI/Abdominal GI/Abdominal exam: Present: normal bowel sounds, soft, other (PEG tube no) - Extremities Exam Extremities exam: Present: normal capillary refill. Absent: normal inspection ( Right upper extremity contracture noted), edema - Back Exam Back exam: Present: normal inspection - Neurological Exam Neurological exam: Present: alert, other (Nonverbal; aphasic) - Psychiatric Psychiatric exam: Present: normal affect, normal mood - Skin Skin exam: Present: warm, dry Results - Labs CBC & BMP: 02/04/17 07:17 02/05/17 06:51 Lab Results: I have reviewed the past 24 hour labs Specialty Discharge - Follow Up or Referrals
--- NOTE | 2017-02-06 08:40 | Neurology Progress Note ---
Neurology - PN : Subjective Interval history: Patient seems to be doing about the same. No new problems reported. Other than weight. Following commands. Exam (Progress Note) - Constitutional Vitals: Period Temp Pulse Resp BP Sys/Meza Pulse Ox Last 24 Hr 97.7 F-98.8 F 75-94 14-20 88-114/55-73 93-97 Exam: GENERAL: Patient is in no acute distress. NECK: Neck is supple. There is no JVD. No carotid bruits present. No thyroid masses. CVS: First and second heart sounds are normal. There is no S3 present. Regular rate and rhythm. RESPIRATORY: Lungs are clear to auscultation without any rales or rhonchi. ABDOMEN: Soft and non-tender. Bowel sounds are present. There is no hepatosplenomegaly. EXT: There is no palpable edema. Peripheral pulses are present. Skin: No rashes Central Nervous system: General: Alert, awake Speech: Non-Fluent Comprehension: Fair Facial expressions: Normal Cranial Nerves: Pupils are equally reactive to light. Doll's head I movements are positive. Extraocular movements are intact. She was swelling of the left facial area Motor: Bulk and Tone is normal. Strength moving all 4 extremities on command Sensory: Unreliable Reflexes: 2+ and symmetrical Cerebellar function: Not tested Toes: Equivocal Gait: Not tested Results - Labs CBC & BMP: 02/04/17 07:17 02/05/17 06:51 Assessment and Plan (1) Cerebral mass Status: Acute Assessment and plan: We will need further evaluation at [facility] neurosurgical department. No further intervention can be done here locally Continue PT and OT Sign off please call as needed Current Visit: Yes (2) Generalized weakness Status: Acute Assessment and plan: Continue present management Current Visit: Yes Specialty Discharge - Follow Up or Referrals
[2017-02-06] MEDS: MAGNESIUM HYDROXIDE SUSP 30 ML UDCUP PER TUBE SCH (09:20)
--- NOTE | 2017-02-06 10:57 | Case Mgmt Physician Query Form ---
TB Signs and Symptoms Screening ([place]) INSTRUCTIONS: To be completed annually on residents/staff with a significant Tuberculin Skin Test (TST) upon admission/hire or a prior significant TST. To be completed on all staff at hire. Please respond to each listed symptom with an (X) in either the "YES" or "NO" box. Do you currently have any of the following symptoms: YES NO ( ) ( x) A cough If yes, is it: ( ) Productive ( ) Non- productive ( ) (x ) Hemoptysis (spitting up blood) ( ) (x ) Chest pains ( ) (x ) Weight Loss ( ) (x ) Fever ( ) ( x) Night Sweats ( ) (x ) Weakness ( ) (x ) Loss of Appetite ( ) (x ) Difficulty Breathing If you answered YES" to any of the above questions, how long have symptoms been present? Comments: If you have any questions, please contact me . Thank you, Litzy LOBATO Email: [email or web address] [facility]
[2017-02-06] MEDS ORDERED: TUBERCULIN SKIN TEST 0.1 ML SYRINGE INTRADERM ONE (12:00)
[2017-02-06 12:27] VITALS: BP 103/68
--- NOTE | 2017-02-06 13:42 | Discharge Summary ---
Hospital Course - Hospital Course Hospital Course: The patient has known intracranial mass possibly meningioma versus recurrent or new tumor plus a mass in the left head and neck. She has been followed at [facility]. She was admitted with progressively worsening weakness. Workup was unremarkable for any new reversible cause. TSH was mildly elevated at 5 with a free T4 of 1. This is unlikely to be a cause of her weakness. She was started on levothyroxine 50 mcg IV however I would recommend either 25 mcg orally or waiting and repeating the TSH. I would wait a couple weeks as she has been getting IV levothyroxine. At this time arrangements have been made for transfer to rehab facility. She will need to follow-up at the [facility] regarding her intracranial and head and neck masses. Diagnosis - Discharge Diagnosis (1) Generalized weakness Status: Acute (2) Constipation Status: Acute (3) Hypothyroidism Status: Acute (4) Cerebral mass Status: Acute Specialty Discharge - Follow Up or Referrals Discharge Plan - Discharge Medications No Action No Known Home Medications [No Known Home Medications] - Follow Up or Referral - Forms/Instructions Forms: Work/School Release Exam - Constitutional Vitals: Period Temp Pulse Resp BP Sys/Meza Pulse Ox Last 24 Hr 97.7 F-98.8 F 75-94 14-20 88-116/55-69 93-99 - Neck Neck exam: Present: other (fullness left parotid area) - Cardiovascular Cardiovascular exam: Present: regular rate and rhythm - GI/Abdominal GI/Abdominal exam: Present: soft. Absent: tenderness - Neurological Exam Neurological exam: Present: alert, oriented X3, other (Drooping left face) Discharge Results Procedures and tests throughout hospitalization: Pending Orders 02/03/17 17:07 Blood Culture Stat 02/10/17 04:00 Basic Metabolic Panel MOTH Magnesium MOTH Phosphorous MOTH Prealbumin MOTH Labs on day of discharge: Preliminary micro results at discharge 02/03/17 17:07 Blood Culture - Preliminary Blood No growth at 1 day 02/03/17 17:07 Blood Culture - Preliminary Blood No growth at 1 day DS: Provider Date of admission: 02/03/17 18:42 Primary care physician: . No PCP Attending physician on admission: Zachariah Lyle MD Consults: 02/03/17 18:43 Consult to Physician [CONS] Routine Comment: Consulting Provider: Chano Heller Consult to Specialist Group: Neurology Person Notified: SAHRA Date Notified: 02/04/17 Time Notified: 09:23 02/03/17 18:44 Consult to Occupational Therapy [CONS] Routine Reason for Occupational Therapy: Evaluate and Treat Consult to Physical Therapy [CONS] Routine Reason for Physical Therapy: Evaluate and Treat 02/04/17 17:49 Consult to Case Mgmt/Social Srvs [CONS] Routine Reason for Case Mgmt/Social Srvs: Other Consult Comment: needs to be transferred to [facility] in [place] for further eval 02/05/17 10:11 Consult to Case Mgmt/Social Srvs [CONS] Routine Reason for Case Mgmt/Social Srvs: Rehab Other Discharging clinician: Dick Wood MD
--- NOTE | 2017-02-06 13:52 | Discharge Summary ---
Hospital Course - Hospital Course Hospital Course: The patient has known intracranial mass possibly meningioma versus recurrent or new tumor plus a mass in the left head and neck. She has been followed at [facility]. She was admitted with progressively worsening weakness. Workup was unremarkable for any new reversible cause. TSH was mildly elevated at 5 with a free T4 of 1. This is unlikely to be a cause of her weakness. She was started on levothyroxine 50 mcg IV however I would recommend either 25 mcg orally or waiting and repeating the TSH. I would wait a couple weeks as she has been getting IV levothyroxine. At this time arrangements have been made for transfer to rehab facility. She will need to follow-up at the [facility] regarding her intracranial and head and neck masses. Diagnosis - Discharge Diagnosis (1) Generalized weakness Status: Acute (2) Constipation Status: Acute (3) Hypothyroidism Status: Acute (4) Cerebral mass Status: Acute Specialty Discharge - Follow Up or Referrals Discharge Plan - Discharge Data Disposition: Disch/Xfer-Ip Rehab Fac Condition at Discharge: Stable Discharge Diet: other (Tube feeding) Activity: as per physical therapy - Discharge Medications New Levothyroxine Tab [Synthroid Tab] 25 mcg PO DAILY@0700 #30 tablet - Follow Up or Referral - Forms/Instructions Forms: Work/School Release Exam - Constitutional Vitals: Period Temp Pulse Resp BP Sys/Meza Pulse Ox Last 24 Hr 97.7 F-98.8 F 75-94 14-20 88-116/55-69 93-99 Discharge Results Procedures and tests throughout hospitalization: Pending Orders 02/03/17 17:07 Blood Culture Stat 02/10/17 04:00 Basic Metabolic Panel MOTH Magnesium MOTH Phosphorous MOTH Prealbumin MOTH Labs on day of discharge: Preliminary micro results at discharge 02/03/17 17:07 Blood Culture - Preliminary Blood No growth at 1 day 02/03/17 17:07 Blood Culture - Preliminary Blood No growth at 1 day DS: Provider Date of admission: 02/03/17 18:42 Primary care physician: . No PCP Attending physician on admission: Zachariah Lyle MD Consults: 02/03/17 18:43 Consult to Physician [CONS] Routine Comment: Consulting Provider: Chano Heller Consult to Specialist Group: Neurology Person Notified: SAHRA Date Notified: 02/04/17 Time Notified: 09:23 02/03/17 18:44 Consult to Occupational Therapy [CONS] Routine Reason for Occupational Therapy: Evaluate and Treat Consult to Physical Therapy [CONS] Routine Reason for Physical Therapy: Evaluate and Treat 02/04/17 17:49 Consult to Case Mgmt/Social Srvs [CONS] Routine Reason for Case Mgmt/Social Srvs: Other Consult Comment: needs to be transferred to [facility] in [place] for further eval 02/05/17 10:11 Consult to Case Mgmt/Social Srvs [CONS] Routine Reason for Case Mgmt/Social Srvs: Rehab Other Discharging clinician: Dick Wood MD
== END 2017-02-06 15:33 | disposition home or self-care (01) | DRG 948 ==
LOC: N.ED 15:38 → N.EDINP 18:42 → SUATTDRO 18:42 → N.EDINP 19:58 → N.5E 21:18
PROVIDERS: ADMIT Internal Medicine; ATTEND Family Medicine